=== PATIENT | female | born 1950 | race Two or more races ===

== ENCOUNTER 2020-12-31 14:05 | Emergency (ER) | payer MEDICARE, OTHER ==
[~2020-12-31] VITALS: Ht 152.4 cm; Wt 66.7 kg
[2020-12-31 18:42] VITALS: BP 148/93
== END 2020-12-31 19:38 | disposition left against medical advice (07) ==
LOC: EDBD 14:05 → ER 14:09
DX: S33.5XXA Sprain of ligaments of lumbar spine, initial encounter (principal); M79.10 Myalgia, unspecified site; R30.0 Dysuria; R10.9 Unspecified abdominal pain; Z88.5 Allergy status to narcotic agent; W01.0XXA Fall on same level from slipping, tripping and stumbling without subsequent striking against object, initial encounter; Y93.89 Activity, other specified; Y92.89 Other specified places as the place of occurrence of the external cause; Y99.8 Other external cause status
CPT/HCPCS: 72100